=== PATIENT | male | born 1960 | race Caucasian/White ===

== ENCOUNTER 2016-04-19 14:34 | Emergency (ER) | payer OTHER ==
[~2016-04-19] VITALS: Wt 120.0 kg
[2016-04-19] MEDS ORDERED: OSLT75C PO (15:24)
[2016-04-19] MEDS ORDERED: BENZ100C70 PO (15:24)
[2016-04-19] MEDS ORDERED: ACET500C5 PO (15:24)
--- NOTE | 2016-04-19 15:38 | ERD ---
ER Documentation Chief Complaint Date/Time DATE: 04/19/16 TIME: 15:35 Chief Complaint COUGH CONGESTION AND BODY PAIN FOR THE PAST 4 DAYS. HPI 55-year-old male with a past medical history of diabetes, hypertension presents to the ED complaining of a cough that started 2 days ago. States that he has body aches. Reports that his brother also has similar symptoms. States that he has not taken any medications. Denies any fever, chills, chest pain, shortness of breath, wheezing, abdominal pain, nausea, vomiting, diarrhea. ROS All systems reviewed and are negative except as per history of present illness. Medications Home Meds Active Scripts Acetaminophen* (Tylophen*) 500 Mg Capsule, 1 CAP PO Q6H Y for PAIN AND OR ELEVATED TEMP, #20 CAP Prov:NICK ORNELAS PA-C 04/19/16 Oseltamivir Phosphate* (Tamiflu*) 75 Mg Capsule, 75 MG PO BID for 5 Days, CAP Prov:ORNELASNICK PA-C 04/19/16 Benzonatate* (Tessalon Perle*) 100 Mg Capsule, 100 MG PO Q8H Y for COUGH, #20 CAP Prov:ORNELASNICK PA-C 04/19/16 Allergies Allergies: Coded Allergies: No Known Allergy (Unverified , 04/19/16) PMhx/Soc History of Surgery: No Anesthesia Reaction: No Hx Neurological Disorder: No Hx Respiratory Disorders: No Hx Cardiac Disorders: No Hx Psychiatric Problems: No Hx Miscellaneous Medical Probl: Yes (DM) Hx Alcohol Use: No Hx Substance Use: No Hx Tobacco Use: No Smoking Status: Never smoker Physical Exam Vitals Vital Signs Date Time Temp Pulse Resp B/P Pulse Ox O2 Delivery O2 Flow Rate FiO2 04/19/16 14:36 99.1 83 22 170/81 95 Physical Exam Const: Glm-ngu-ljnpxhwog, well-nourished. In no acute distress. Head: Atraumatic, normocephalic Eyes: Normal Conjunctiva without injection. No purulent discharge. PERRL. EOMI ENT: Normal external ear. Ear canal without erythema. Tympanic membrane pearly ortiz without effusion or bulging. Nasal canal clear with normal turbinates. Moist oropharynx without tonsillar exudates. Non-erythematous pharynx. Uvula midline. No drooling. No trismus. Neck: Full range of motion. No meningismus. No cervical lymphadenopathy. Resp: Clear to auscultation bilaterally. No wheezing, rhonchi, rales, or crackles. No accessory muscle use. No retractions. Cardio: Regular rate and rhythm. No murmurs, rubs or gallops. Abd: Soft, non tender, non distended. Normal bowel sounds. No palpable masses. No rebound tenderness. No guarding. Skin: No petechiae or rashes Back: No midline tenderness. No CVA tenderness. Ext: No cyanosis, or edema. Neur: Awake and alert. Psych: Normal Mood and Affect Procedures/MDM 55-year-old male with a past medical history of hypertension, diabetes presents to the ED complaining of cough, body aches. Patient is afebrile nontoxic appearing. Patient has normal vital signs. This patient presents to the ED with symptoms consistent with a viral acute upper respiratory infection. Patient is afebrile and has normal vital signs. Patient's physical exam include lungs which were clear to auscultation and a normal pulse oximetry. There is a low suspicion for pneumonia, pneumothorax, pulmonary embolism, epiglottitis, otitis media, otitis externa, viral/strep pharyngitis, sinusitis, peritonsillar abscess, mastoiditis, retropharyngeal abscess, meningitis, sepsis , acute abdomen or other emergent conditions. Fluids, rest, and symptomatic treatment are recommended for the management of patient's symptoms. Discharge medications: Tylenol, Tamiflu, Tessalon Perles Patient was instructed to return to the ED for any new or worsening symptoms. They should otherwise follow up with the primary care provider within 1-2 days. The patient's questions were answered at the time of discharge. Patient understood and agreed with discharge management. Departure Diagnosis: Primary Impression: Flu-like symptoms Condition: Stable Patient Instructions: Influenza (Adult) Referrals: COMM[facility]ITY CLINICS YOU HAVE RECEIVED A MEDICAL SCREENING EXAM AND THE RESULTS INDICATE THAT YOU DO NOT HAVE A CONDITION THAT REQUIRES URGENT TREATMENT IN THE EMERGENCY DEPARTMENT. FURTHER EVALUATION AND TREATMENT OF YOUR CONDITION CAN WAIT UNTIL YOU ARE SEEN IN YOUR DOCTORS OFFICE WITHIN THE NEXT 1-2 DAYS. IT IS YOUR RESPONSIBILITY TO MAKE AN APPOINTMENT FOR FOLOW-UP CARE. IF YOU HAVE A PRIMARY DOCTOR --you should call your primary doctor and schedule an appointment IF YOU DO NOT HAVE A PRIMARY DOCTOR YOU CAN CALL OUR PHYSICIAN REFERRAL HOTLINE AT IF YOU CAN NOT AFFORD TO SEE A PHYSICIAN YOU CAN CHOSE FROM THE FOLLOWING [facility] [address] [facility] [address] [place] [facility] [address] [facility] [address] [facility] [address] [facility]. [facility] [address] [facility]. [facility] YOU HAVE RECEIVED A MEDICAL SCREENING EXAM AND THE RESULTS INDICATE THAT YOU DO NOT HAVE A CONDITION THAT REQUIRES URGENT TREATMENT IN THE EMERGENCY DEPARTMENT. FURTHER EVALUATION AND TREATMENT OF YOUR CONDITION CAN WAIT UNTIL YOU ARE SEEN IN YOUR DOCTORS OFFICE WITHIN THE NEXT 1-2 DAYS. IT IS YOUR RESPONSIBILITY TO MAKE AN APPOINTMENT FOR FOLOW-UP CARE. IF YOU HAVE A PRIMARY DOCTOR --you should call your primary doctor and schedule and appointment IF YOU DO NOT HAVE A PRIMARY DOCTOR YOU CAN CALL OUR PHYSICIAN REFERRAL HOTLINE AT . IF YOU CAN NOT AFFORD TO SEE A PHYSICIAN YOU CAN CHOSE FROM THE FOLLOWING [facility]: [facility] [address] [place] [address] [facility] [address] [place] [address] [facility] [address] [place] [address] [facility] URGENT CARE/SPECIALTIES Additional Instructions: FOLLOW UP WITH YOUR PRIMARY CARE PHYSICIAN TOMORROW.Return to this facility if you are not improving as expected. NICK ORNELAS PA-C Apr 19, 2016 15:38
[2016-04-19 16:44] VITALS: BP 180/81; PULSE 76; RESP 16; TEMP 98.3
== END 2016-04-19 16:45 | disposition home or self-care (01) ==
LOC: FTE 14:34
DX: R05 Cough (principal); E11.9 Type 2 diabetes mellitus without complications
CPT/HCPCS: 99284

== ENCOUNTER 2016-06-05 20:47 | Emergency (ER) | payer OTHER ==
[~2016-06-05] VITALS: Ht 177.8 cm; Wt 125.0 kg
[~2016-06-05 20:47] MED LIST: ACET500C5 PO; BENZ100C70 PO; OSLT75C PO
[2016-06-05 21:54] VITALS: Ht 177.8 cm; Wt 125.0 kg
[2016-06-06] MEDS ORDERED: IBUP-1542 PO (00:30)
[2016-06-06] MEDS ORDERED: HYDR-906 PO (00:30)
[2016-06-06] MEDS ORDERED: OSLT75C PO (00:30)
[2016-06-06 01:04] VITALS: BP 151/72; PULSE 72; RESP 16; TEMP 98.6
--- NOTE | 2016-06-06 01:46 | ERD ---
ER Documentation Chief Complaint Date/Time DATE: 06/06/16 TIME: 01:37 Chief Complaint back pain x 5 days, denies injury HPI This is a 55-year-old male complaining of multiple symptoms for the past 5 days. Patient complained of generalized body ache, cough, sore throat, runny nose, chills. Patient also has lower back pain that radiates to the right flank. Pain is reproducible upon turning. Denies any trauma. Patient did not get any flu shot this season. Patient also thinks that he had a fever but was not able to check his temperature. Denies any recent sick contacts. No chest pain or shortness of breath. Denies paresis or paresthesia. ROS All systems reviewed and are negative except as per history of present illness. Medications Home Meds Active Scripts Hydrocodone/Acetaminophen (Ingleside 5-325 Tablet) 1 Each Tablet, 1 TAB PO Q6H Y for PAIN, #15 TAB Prov:RUTH FRANK 06/06/16 Ibuprofen* (Motrin*) 600 Mg Tab, 600 MG PO Q6H Y for PAIN AND OR ELEVATED TEMP, #30 TAB Prov:RUTH FRANK 06/06/16 Oseltamivir Phosphate* (Tamiflu*) 75 Mg Capsule, 75 MG PO BID for 5 Days, CAP Prov:RUTH FRANK 06/06/16 Acetaminophen* (Tylophen*) 500 Mg Capsule, 1 CAP PO Q6H Y for PAIN AND OR ELEVATED TEMP, #20 CAP Prov:NICK ORNELAS-C 04/19/16 Oseltamivir Phosphate* (Tamiflu*) 75 Mg Capsule, 75 MG PO BID for 5 Days, CAP Prov:NICK ORNELAS-C 04/19/16 Benzonatate* (Tessalon Perle*) 100 Mg Capsule, 100 MG PO Q8H Y for COUGH, #20 CAP Prov:NICK ORNELAS-C 04/19/16 Allergies Allergies: Coded Allergies: No Known Allergy (Unverified , 04/19/16) PMhx/Soc Medical and Surgical Hx: pt denies Medical Hx History of Surgery: No Anesthesia Reaction: No Hx Neurological Disorder: No Hx Respiratory Disorders: No Hx Cardiac Disorders: No Hx Psychiatric Problems: No Hx Miscellaneous Medical Probl: Yes (DM) Hx Alcohol Use: No Hx Substance Use: No Hx Tobacco Use: No Smoking Status: Light tobacco smoker Physical Exam Vitals Vital Signs Date Time Temp Pulse Resp B/P Pulse Ox O2 Delivery O2 Flow Rate FiO2 06/06/16 01:04 98.6 72 16 151/72 98 Room Air 06/05/16 21:54 99.0 71 20 137/77 97 Physical Exam Physical Exam CONST: Well-developed, well-nourished, in no acute distress. Nontoxic in appearance. HEENT: Atraumatic. Normal Conjunctiva. EOM intact. TM intact. External ear is normal. Clear oropharnyx without erythema. No Uvular deviation. Moist mucous membranes. Supple neck. No meningismus. No submandibular induration. RESP: Clear to auscultation bilaterally. No wheezing. CARDIO: Regular rate and rhythm, no murmurs. ABD: Soft, non tender, non distended. Normal bowel sounds. No McBurney's point tenderness. No guarding or rigidity. No peritoneal signs. SKIN: No petechiae or rashes. BACK: Lower back pain is reproducible by bending over and turning. Spinous process is midline without any tenderness. EXT: No cyanosis or edema. Distal pulses equal and bilateral. NEURO: Awake and alert, appropriate for age. Procedures/MDM EMERGENCY DEPARTMENT COURSE/MEDICAL DECISION MAKING This is a 55-year-old male who comes to the emergency room complaining of flulike symptoms. Patient is afebrile. Appears nontoxic. Cardiac and pulmonary exam are unremarkable. I believe this lower back pain is due to muscle strain and radiologic studies are unnecessary. No trauma reported My primary diagnosis is flulike symptoms. Secondary diagnosis are low back pain Differential diagnoses considered, included but not limited to fracture, pneumonia, bronchitis, influenza, asthma, pharyngitis, peritonsillar abscess, otitis media, otitis externa.. Pt is hemodynamically stable upon reassessment. The patient was discharged for outpatient management with a prescription for Ing[place]ide, ibuprofen and Tamiflu. The patient was advised to followup with their PMD in 1-2 days and to return to the Emergency Department if there are any new or worsening symptoms. The patient understood and agreed with the diagnosis, treatment and plan. Patient is stable for discharge at this time. Departure Diagnosis: Primary Impression: Flu-like symptoms Additional Impression: Back pain Back pain location: low back pain Chronicity: acute Back pain laterality: midline Sciatica presence: without sciatica Qualified Code: M54.5 - Acute midline low back pain without sciatica Condition: Stable Patient Instructions: Back Pain (Acute Or Chronic), Influenza (Adult) Referrals: [facility] ([facility]) Usted se abdullahi hecho un examen mdico de control que le indica que no est en daniel condicin que requiera tratamiento urgente en el Departamento de Emergencia. Un estudio ms profundo y el tratamiento de martin condicin pueden esperar sin ningn riesgo hasta que usted sea atendida/o en el consultorio de martin mdico o daniel cl taty. Es responsabilidad suya arreglar daniel yulisa para el seguimiento del dez. MANEJO DE CONDICIONES NO URGENTES EN EL FUTURO 1) Si usted tiene un mdico de atencin primaria: Usted debera llamar a martin mdico de atencin primaria antes de venir al departamento de emergencia. Despus de las horas de consultorio, martin doctor o martin asociado/a est disponible por telfono. El mdico o enfermero de mariah en el servicio telefnico puede asesorarle por abdias medio para atender el problema, o dez contrario se puede programar daniel yulisa. 2) Si usted no tiene un mdico de atencin primaria: Llame al mdico o clnica de referencia que aparece abajo shasta las horas de consultorio para hacer daniel yulisa para que le vean. CLINICAS: [facility] [phone] [facility] [phone] [address] [facility] [phone] [address] [facility]. [place] [phone] [facility]. [place] [phone] [facility] [phone] [place] [address]. [facility] () Uselizabeth se abdullahi hecho un examen mdico de control que le indica que no est en daniel condicin que requiera tratamiento urgente en el Departamento de Emergencia. Un estudio ms profundo y el tratamiento de martin condicin pueden esperar sin ningn riesgo hasta que usted sea atendida/o en el consultorio de martin mdico o daniel cl taty. Es responsabilidad suya arreglar daniel yulisa para el seguimiento del dez. MANEJO DE CONDICIONES NO URGENTES EN EL FUTURO 1) Si usted tiene un mdico de atencin primaria: Usted debera llamar a martin mdico de atencin primaria antes de venir al departamento de emergencia. Despus de las horas de consultorio, martin doctor o martin asociado/a est disponible por telfono. El mdico o enfermero de mariah en el servicio telefnico puede asesorarle por abdias medio para atender el problema, o dez contrario se puede programar daniel yulisa. 2) Si usted no tiene un mdico de atencin primaria: Llame al mdico o condado institucions de referencia que aparece abajo shasta las horas de consultorio para hacer daniel yulisa para que le vean. SI USTED NO PUEDE PAGAR PARA GISSEL UN MEDICO puede ir a: [facility] [address] [place] [address] [facility] [address] [place] [address] [facility] [address] [place] [address] [facility] [address] [place] [address] Additional Instructions: Cheque otro vez con martin doctor primario en el proximo howard or regresa para mas o nueva simptomas RUTH FRANK Jun 06, 2016 01:46
== END 2016-06-06 01:05 | disposition home or self-care (01) ==
LOC: FTE 20:47
DX: R05 Cough (principal); R09.89 Other specified symptoms and signs involving the circulatory and respiratory systems; J02.9 Acute pharyngitis, unspecified; M54.5 Low back pain; F17.210 Nicotine dependence, cigarettes, uncomplicated; E11.9 Type 2 diabetes mellitus without complications
CPT/HCPCS: 99284